=== PATIENT | male | born 1995 | race Caucasian/White ===

== ENCOUNTER 2022-06-05 16:36 | Emergency (ER) | payer OTHER, SELFPAY ==
[2022-06-05 16:38] VITALS: BP 136/89; PULSE 109; RESP 18; TEMP 36.8; O2SAT 97; BMI 35.2
--- NOTE | 2022-06-05 17:00 | EDS_ITS ---
HPI History of Present Illness Chief Complaint: Eye Problem Detail of Chief Complaint: Biocular blurred vision that is gotten worse over the past 1 to 2 weeks Informant: patient Onset/Context/Timing Location: Bilateral Eyes Onset: Weeks Context: Gradual Onset Timing: Continuous Maximum Severity: Moderate Worsened by: Nothing Relieved by: Nothing Associated Symptoms Associated Symptoms - Eyes: - (Suspect patient has blurred vision due to new onset diabetes) Visual Changes: bilateral: Blurred vision History of injury: No Narrative Narrative: Patient is a 86-year-old heavyset gentleman who complains of polyuria, polydipsia, nocturia. He states he wakes up 6 times in the middle night. He states he cannot drink enough water. He reports feeling continuously thirsty. He is present for he endorsing dry mouth. He denies orthostatic symptoms. He does admit to weight loss. There is family history of diabetes. He denies photophobia, partial or complete loss of vision. He denies any flashing lights etc. Prior similar symptoms: No Recent Illness/Hospitalization: No PFSH PFSH Medical History no medical history no medical history Home Medications dextroamphetamine-amphetamine 10 mg tablet (Adderall) 08/28/13 [History Last Taken Unknown] etodolac 300 mg capsule 300 mg PO TIDCM ##30 08/28/13 [Rx Last Taken Unknown] glipizide 2.5 mg tablet, extended release 24 hr (Glucotrol XL) 2.5 mg PO BID #60 tabs 06/05/22 [Rx Last Taken Unknown] Allergy/AdvReac Type Severity Reaction Status Date / Time No Known Allergies Allergy Verified 06/05/22 16:37 Surgical History no surgical history no surgical history Social History (Updated 06/05/22 @ 17:[address] Dario Guzman MD) household members: none Smoking Status: Never smoker substance use type: does not use ROS ROS ED Constitutional Constitutional ED: Denies chills, fever(s), subjective, sweats or weight loss Eyes Eyes: Reports blurry vision bilateral; Denies diplopia ENT ENT ED: Denies ear pain, rhinorrhea or sore throat Cardiovascular Cardiovascular: Denies chest pain, orthopnea, palpitations, paroxysmal nocturnal dyspnea or racing heartbeat Respiratory/Chest Respiratory/Chest: Denies cough, dyspnea, dyspnea on exertion, orthopnea or paroxysmal nocturnal dyspnea Gastrointestinal Gastrointestinal: Denies abdominal pain, diarrhea, nausea or vomiting Genitourinary Genitourinary ED: Reports urinary frequency; Denies dysuria or hematuria Musculoskeletal Musculoskeletal: Denies arthralgias, back pain, myalgias or neck pain Integumentary Denies abscess, Abrasions or rash Neurologic Neurologic: Denies headache(s), paresthesias or weakness Psychiatric Psychiatric: Denies anxiety or depression Endocrine Endocrinology: Reports polydipsia, polyphagia and polyuria Hematologic/Lymphatic Hematologic/Lymphatic: Denies easy bleeding or easy bruising EXAM Physical Exam Const Vital Signs: 06/05/22 16:38 Temperature 98.2 F Temperature Source Temporal Pulse Rate 109 H Respiratory Rate 18 Blood Pressure 136/89 H Blood Pressure Mean 104 Pulse Ox 97 Oxygen Delivery Method Room Air Positive well nourished, well developed and obese General Appearance ED: well developed and NAD Nutritional Appearance: obese HEENT HEENT Narrative: Head is atraumatic normocephalic. Ears normal. Nares patent. Uvula midline. No deviation of protrusion. There is no erythema to the posterior pharynx. Patient's mucosa is dry. Eyes Eyes Narrative: Nipples equal round reactive. Extract muscle intact. Sclera is anicteric. There is no APD. Cup-to-disc ratio is normal. There is no papilledema. Venous pulsations noted bilaterally. Neck no lymphadenopathy and supple Resp normal respiratory effort, no retractions, no use of accessory muscles and clear to auscultation bilaterally Cardio regular rhythm, S1 normal heart sound, S2 normal heart sound and no murmurs Cardio Narrative: Heart is rapid. GI non-tender and non-distended Back/Spine no CVA tenderness Extremity normal to inspection Neuro oriented x3, CN's II-XII intact bilaterally and moves all extremities Sensorium / Orientation: alert Psych Psych Narrative: Mood and affect are normal. Skin Lesions: no lesions Rashes: no rashes MDM MDM MDM Narrative Medical decision making narrative: Patient's history is consistent with new onset diabetes. BMP was obtained to assess glucose, CO2 anion gap and electrolytes. Urine was obtained to assess for ketones and specific gravity. CBC to assess for white count. If patient has evidence of hyperkalemia or kidney injury will obtain EKG otherwise not indicated. He will receive 2 L of normal saline wide open. His bilateral blurred vision is due to hyperglycemia. This is not an ocular problem. Since patient is not in DKA he received 5 units of insulin subcu. Blood sugar improved to 432 after IV fluids. Case was discussed with Dr. Landa. She requested a sulfonylurea. Will discharge with close follow-up Lab Data Attestation: I reviewed the patient's lab results. Lab results narrative: Blood work is remarkable glucose to 632 with a normal CO2 and anion gap. Urine is unremarkable. Discharge Plan Triage Chief Complaint: Eye Problem ED Provider: Dario Guzman Dx/Rx/DC Orders Clinical Impression: New onset type 2 diabetes mellitus, Acute dehydration Instructions: ED Diabetic Hyperglycemia Prescriptions: New glipizide [Glucotrol XL] 2.5 mg tablet extended release 24hr 2.5 mg PO BID Qty: 60 0RF No Action dextroamphetamine-amphetamine [Adderall] 10 MG tablet etodolac 300 MG capsule 300 mg PO TIDCM Qty: 30 0RF Primary Care Provider: Kiko Hoffman Referrals: Alice Vasquez MD [Med Staff - Medical Lab Specialist] - 3-5 Days Kiko Hoffman MD [Primary Care Provider] - Disposition Disposition: Home, Self Care
--- NOTE | 2022-06-05 17:10 | NURSING ---
Blood Sugar HI over 600, Reported to Dr. Guzman and Will COTE.
[2022-06-05 17:16] LABS: Bacteria 0 SEEN /hpf (None Seen); Mucous, Urine 0 SEEN /hpf (<or=2+); Red Blood Cells-Urine 0 SEEN /hpf (0-5); Squamous Epithelial Cells - UA 0 SEEN /hpf (0-5); White Blood Cells 0 SEEN /hpf (0-5)
[2022-06-05] MEDS: 0.9% Normal Saline 1,000 ML 1000 ML IV ×2 (17:21→17:56)
[2022-06-05 17:23] LABS: Absolute Lymphocyte Count 2.04 X10^3/uL (0.83-4.51); Absolute Neutrophil Count 6.3 X10^3/uL (2.0-7.7); Basophil# 0.03 X10^3/uL; Basophil% 0.3 % (0-1); Eosinophil# 0.19 X10^3/uL; Hematocrit 42.7 % (40-54); Hemoglobin 15.3 g/dL (13.0-16.5); Lymphocyte # 2.04 X10^3/ul (0.83-4.51); Lymphocyte % 21.8 % (19-41); Mean Corp Hgb Conc 35.8 g/dL (32-36); Mean Corpuscular Hgb 28.7 pg (27.0-32.0); Mean Corpuscular Volume 80.1 fL (80-94); Mean Platelet Vol. 11.5 fl (6.2-12.0); Monocyte# 0.72 X10^3/uL; Monocyte% 7.7 % (0-10); NRBC Flagged by Analyzer 0 % (0-5); Neutrophil # 6.34 X10^3/uL (2.7-7.7); Neutrophil % 67.8 % (47-70); Platelet Count 282 K/mm3 (150-450); RBC Distribution Width CV 11.8 % (11.6-14.6); Red Blood Count 5.33 M/mm3 (4.6-6.2); White Blood Count 9.4 K/mm3 (4.4-11.0)
[2022-06-05 17:25] LABS: Bedside Glucose > 500 mg/dL (74-106)
[2022-06-05 17:32] LABS: Color, Urine Yellow (Yellow); Glucose, Dipstick 1000 mg/dl (Normal); Ketone-Dipstick 15 mg/dl (Negative); Leukocyte Esterase-Dipstick Negative /ul (Negative); Nitrite-Dipstick Negative (Negative); Occult Blood-Urine Negative /ul (Negative); Protein-Dipstick Negative (Negative); Urine Bilirubin Dipstick Negative (Negative); Urine Clarity Clear (Clear); Urine Urobilinogen Normal (Normal)
[2022-06-05 17:40] LABS: Anion Gap 8 (5-15); BUN 13 mg/dL (7-18); BUN/Creat Ratio 10.7 RATIO (10-20); Calcium,Total 8.6 mg/dL (8.5-10.1); Chloride 95 mmol/L (98-107); Creatinine, Serum 1.21 mg/dL (0.70-1.30); EST Glomerular Filtration Rate 77 mL/min (>60); Est Glom Filt Rate - Afr Amer 93 mL/min (>60); Estimated Creatinine Clearance 96.36 ml/min; Glucose 632 mg/dL (74-106); Potassium 4.5 mmol/L (3.5-5.1); Sodium Level 128 mmol/L (136-145)
[2022-06-05] MEDS: Insulin Lispro 100 UNIT/ML INSULN.PEN SC (18:44)
[2022-06-05 19:00] LABS: Bedside Glucose 471 mg/dL (74-106)
--- NOTE | 2022-06-05 19:22 | ED.RN ---
Pt repeat blood sugar 492. Dr. Guzman made aware.
[2022-06-05 19:35] LABS: Bedside Glucose 492 mg/dL (74-106)
== END 2022-06-05 19:23 | disposition home or self-care (01) ==
PROVIDERS: Emergency Provider Emergency Medicine; PCP Pediatrics; Visit Provider Emergency Medicine
DX: E11.65 Type 2 diabetes mellitus with hyperglycemia (principal); R35.89 Other polyuria; H53.8 Other visual disturbances; E86.0 Dehydration; E66.9 Obesity, unspecified
CPT/HCPCS: 80048; 81001; 82962; 85025; 96360; 96361; 99284; J7030; A4216